=== PATIENT | female | born 1960 | race Caucasian/White ===

== ENCOUNTER 2017-12-25 09:41 | Emergency (ER) | payer OTHER, MEDICAID, SELFPAY ==
[2017-12-25 09:55] VITALS: BP 126/83; PULSE 76; RESP 18; TEMP 36.3; O2SAT 96; BMI 32.5
[2017-12-25] MEDS: IBUPROFEN 400 MG TABLET 800 MG PO (10:05)
--- NOTE | 2017-12-25 10:09 | ED.DENTAL ---
HPI - Dental/Oral General Chief complaint: Dental/Oral Stated complaint: TOOTH PAIN Time Seen by Provider: 12/25/17 09:51 Source: patient Mode of arrival: ambulatory Limitations: no limitations History of Present Illness HPI Narrative: 57 F no sig pmhx has 2 weeks L side lower molar pain with headache. Patient has appointment with dentist in 6 days, but has intolerable pain prompting her presentation. Has been taking baby aspirin and using oragel. No fever/ chills. No nausea, vomiting, oral swelling. Related Data Home Medications Medication Instructions Recorded Confirmed venlafaxine See Label Instructions .ROUTE 12/25/17 12/25/17 .COMPLEX Previous Rx's Medication Instructions Recorded clindamycin HCl 300 mg PO TID 10 Days #30 cap 12/25/17 oxycodone-acetaminophen 1 tab PO Q4-6H PRN #7 tab 12/25/17 Allergies Allergy/AdvReac Type Severity Reaction Status Date / Time bupropion [From WELLBUTRIN] Allergy Intermediate HIVES Verified 12/25/17 09:59 Review of Systems Constitutional Denies chills, Denies fever(s), Denies lethargy and Denies weakness ENT Ears, Nose, Mouth, and Throat: Denies change in voice, Denies neck pain and Denies sore throat Cardiovascular Denies chest pain, Denies irregular heart rhythm, Denies lightheadedness, Denies palpitations and Denies orthopnea Gastrointestinal Gastrointestinal: Denies abdominal pain, Denies change in bowel habits, Denies diarrhea, Denies nausea and Denies vomiting Musculoskeletal Denies neck pain Neurologic Denies weakness Endocrine Denies palpitations [facility] Medical History Depressed (Acute) Social History Smoking Status: Current every day smoker Exam Initial Vital Signs Initial Vital Signs: Vital Signs Temperature 97.4 F L 12/25/17 09:55 Pulse Rate 76 12/25/17 09:55 Respiratory Rate 18 12/25/17 09:55 Blood Pressure 126/83 H 12/25/17 09:55 Pulse Oximetry 96 12/25/17 09:55 Const General: cooperative and well developed Nutritional Appearance: well nourished Orientation: alert, awake, oriented x3 and not confused HENMT Head: normocephalic and atraumatic Ears: hearing grossly normal bilaterally Nose: external nose normal Face and sinus: normal facial exam and sinuses nontender Mouth: other (L side lower posterior molar has surrounding erythema and tenderness to gum. No fluctuance or drainable abscess. ) Teeth and gingiva: caries Throat: posterior oropharynx normal Resp Effort & Inspection: normal respiratory effort, able to speak in complete sentences, no respiratory distress and no use of accessory muscles Auscultation: clear to auscultation bilaterally, no rales, no rhonchi and no wheezes Cardio Rate: regular rate Rhythm: regular rhythm Heart Sounds: no click, no gallops, no murmurs and no rubs Pulses: normal peripheral pulses GI Inspection: non-distended Palpation: soft, no hepatosplenomegaly, No guarding, No pulsatile mass and No tender Auscultation: normal bowel sounds Neuro General: alert, oriented x3, gait normal and no focal motor deficits Speech: speech normal Course Orders Ordered: Discontinued Medications Ibuprofen (Advil) 800 mg PO NOW ONE Stop: 12/25/17 09:59 Last Admin: 12/25/17 10:05 Dose: 800 mg Vital Signs - 8 hr 12/25/17 09:55 Temperature 97.4 F L Pulse Rate 76 Respiratory Rate 18 Blood Pressure 126/83 H Pulse Oximetry 96 [facility] - Dental/Oral Differential Diagnosis Likely dental caries, toothache and dental abscess Medical Records Attestation: I reviewed the patient's medical records. [facility] Narrative Medical decision making narrative: Patient without drainable abscess has dental pain. Pending f/u with dentist in 6 days. Plan for pain medication and antibiotics. Ibuprofen 800mg given in ED. Script for clinda and percocet. f/u with dentist. Discharge Plan Departure Patient Disposition: Home, Self-Care Clinical Impression: Infected tooth, Toothache Instructions: DI for Dental Pain Activity Restrictions/Additional Instructions: Follow up with your dentist as planned. Maintain adequate hydration. Prescriptions: New clindamycin HCl 300 mg capsule 300 mg PO TID 10 Days Qty: 30 RF: 0 oxycodone-acetaminophen 5-325 mg tablet 1 tab PO Q4-6H PRN (Reason: pain) Qty: 7 RF: 0 No Action venlafaxine 75 mg tablet See Label Instructions .ROUTE .COMPLEX RF: 0 Referrals: Felisha Bautista DO [Primary Care Provider] -
--- NOTE | 2017-12-25 10:13 | ED_ITS ---
HPI - Dental/Oral General Chief complaint: Dental/Oral Stated complaint: TOOTH PAIN Time Seen by Provider: 12/25/17 09:51 Source: patient Mode of arrival: ambulatory Limitations: no limitations History of Present Illness HPI Narrative: 57 F no sig pmhx has 2 weeks L side lower molar pain with headache. Patient has appointment with dentist in 6 days, but has intolerable pain prompting her presentation. Has been taking baby aspirin and using oragel. No fever/ chills. No nausea, vomiting, oral swelling. Related Data Home Medications Medication Instructions Recorded Confirmed venlafaxine See Label Instructions .ROUTE 12/25/17 12/25/17 .COMPLEX Previous Rx's Medication Instructions Recorded clindamycin HCl 300 mg PO TID 10 Days #30 cap 12/25/17 oxycodone-acetaminophen 1 tab PO Q4-6H PRN #7 tab 12/25/17 Allergies Allergy/AdvReac Type Severity Reaction Status Date / Time bupropion [From WELLBUTRIN] Allergy Intermediate HIVES Verified 12/25/17 09:59 Review of Systems Constitutional Denies chills, Denies fever(s), Denies lethargy and Denies weakness ENT Ears, Nose, Mouth, and Throat: Denies change in voice, Denies neck pain and Denies sore throat Cardiovascular Denies chest pain, Denies irregular heart rhythm, Denies lightheadedness, Denies palpitations and Denies orthopnea Gastrointestinal Gastrointestinal: Denies abdominal pain, Denies change in bowel habits, Denies diarrhea, Denies nausea and Denies vomiting Musculoskeletal Denies neck pain Neurologic Denies weakness Endocrine Denies palpitations [facility] Medical History Depressed (Acute) Social History Smoking Status: Current every day smoker Exam Initial Vital Signs Initial Vital Signs: Vital Signs Temperature 97.4 F L 12/25/17 09:55 Pulse Rate 76 12/25/17 09:55 Respiratory Rate 18 12/25/17 09:55 Blood Pressure 126/83 H 12/25/17 09:55 Pulse Oximetry 96 12/25/17 09:55 Const General: cooperative and well developed Nutritional Appearance: well nourished Orientation: alert, awake, oriented x3 and not confused HENMT Head: normocephalic and atraumatic Ears: hearing grossly normal bilaterally Nose: external nose normal Face and sinus: normal facial exam and sinuses nontender Mouth: other (L side lower posterior molar has surrounding erythema and tenderness to gum. No fluctuance or drainable abscess. ) Teeth and gingiva: caries Throat: posterior oropharynx normal Resp Effort & Inspection: normal respiratory effort, able to speak in complete sentences, no respiratory distress and no use of accessory muscles Auscultation: clear to auscultation bilaterally, no rales, no rhonchi and no wheezes Cardio Rate: regular rate Rhythm: regular rhythm Heart Sounds: no click, no gallops, no murmurs and no rubs Pulses: normal peripheral pulses GI Inspection: non-distended Palpation: soft, no hepatosplenomegaly, No guarding, No pulsatile mass and No tender Auscultation: normal bowel sounds Neuro General: alert, oriented x3, gait normal and no focal motor deficits Speech: speech normal Course Orders Ordered: Discontinued Medications Ibuprofen (Advil) 800 mg PO NOW ONE Stop: 12/25/17 09:59 Last Admin: 12/25/17 10:05 Dose: 800 mg Vital Signs - 8 hr 12/25/17 09:55 Temperature 97.4 F L Pulse Rate 76 Respiratory Rate 18 Blood Pressure 126/83 H Pulse Oximetry 96 [facility] - Dental/Oral Differential Diagnosis Likely dental caries, toothache and dental abscess Medical Records Attestation: I reviewed the patient's medical records. [facility] Narrative Medical decision making narrative: Patient without drainable abscess has dental pain. Pending f/u with dentist in 6 days. Plan for pain medication and antibiotics. Ibuprofen 800mg given in ED. Script for clinda and percocet. f/ u with dentist. Discharge Plan Departure Patient Disposition: Home, Self-Care Clinical Impression: Infected tooth, Toothache Instructions: DI for Dental Pain Activity Restrictions/Additional Instructions: Follow up with your dentist as planned. Maintain adequate hydration. Prescriptions: New clindamycin HCl 300 mg capsule 300 mg PO TID 10 Days Qty: 30 RF: 0 oxycodone-acetaminophen 5-325 mg tablet 1 tab PO Q4-6H PRN (Reason: pain) Qty: 7 RF: 0 No Action venlafaxine 75 mg tablet See Label Instructions .ROUTE .COMPLEX RF: 0 Referrals: Felisha Bautista DO [Primary Care Provider] -
--- NOTE | 2017-12-25 10:13 | PC.NURSE ---
pt reports, left lower molar issue for one month, worsening pain/swelling the last week, has been treated with orajel and heat. denies fever,vomiting. has dental appt 31 december.
== END 2017-12-25 10:26 | disposition home or self-care (01) ==
PROVIDERS: Emergency Provider Student in an Organized Health Care Education/Training Program; PCP Family Medicine
DX: K04.7 Periapical abscess without sinus (principal)
CPT/HCPCS: 99282; 99283